=== PATIENT | female | born 2000 | race Caucasian/White ===

== ENCOUNTER 2021-09-18 20:23 | Emergency (ER) | payer OTHER, SELFPAY ==
[2021-09-18 20:36] VITALS: BP 138/83; PULSE 105; RESP 17; TEMP 36.2; O2SAT 100
[2021-09-18 20:52] LABS: Add Urine Microscopic? YES; Amorphous Sediment Urine Heavy; Appearance Urine Turbid (Clear); Bilirubin Urine Negative (Negative); Blood Urine 2+ (Negative); Color Urine Red (Yellow); Glucose Urine UA Negative (Negative); Ketones Urine Negative (Negative); Leukocyte Esterase Ur 1+ LEU/UL (Negative); Nitrate Urine Negative (Negative); Protein Urine 2+ mg/dL (Negative); RBC Urine >75 /hpf (0-2); Specific Grav Ur 1.018 (1.001-1.035); Urobilinogen Urine Negative mg/dL (<2.0)
--- NOTE | 2021-09-18 20:55 | ED.FEMALEGU ---
HPI - Female Genitourinary General Chief complaint: Urogenital-Female Stated complaint: think i have a uti Time Seen by Provider: 09/18/21 20:38 History of Present Illness HPI Narrative: 20-year-old female presents the emergency room with complaints of dysuria for 3 days. Patient denies abdominal pain, denies low back pain, denies fever, no concerns over STDs. Related Data Home Medications Medication Instructions Recorded Confirmed No Home Medications 09/18/21 09/18/21 Allergies Allergy/AdvReac Type Severity Reaction Status Date / Time No Known Allergies Allergy Verified 09/18/21 20:23 Review of Systems Review of Systems: CONSTITUTIONAL: Denies fever, chills, or sweats. EYES: Denies visual changes, redness, or discharge. ENT: Denies rhinorrhea, congestion, sore throat, or otalgia. CARDIOVASCULAR: Denies chest pain, palpitations, or edema. RESPIRATORY: Denies cough or dyspnea. GASTROINTESTINAL: Denies abdominal pain, nausea, vomiting, or diarrhea. GENITOURINARY: Reports dysuria and hematuria. SKIN: Denies rash or itching. MUSCULOSKELETAL: Denies back pain, joint pain, or myalgia. NEUROLOGIC: Denies headache, numbness, dizziness, or weakness. PSYCHIATRIC: Denies anxiety or depression. Exam Narrative: GENERAL: Well-appearing, well-nourished, and in no acute distress. HEAD: Normocephalic, atraumatic. EYES: PERRLA and EOMI. ENT: Nares clear, no rhinorrhea or epistaxis. Mucous membranes moist. NECK: Supple. No adenopathy or masses. No carotid bruits or JVD CHEST: Clear to auscultation. No respiratory distress. No wheezes rales or rhonchi HEART: Regular rate and rhythm. No murmur heard. Normal peripheral pulses. ABDOMEN: Soft, nontender, nondistended, normal active bowel sounds. No CVA tenderness EXTREMITIES: Normal range of motion. No edema. SKIN: Warm, dry, no rash. NEURO: No focal deficits. Alert and oriented x3. PSYCH: Normal mood and affect. Course Vital Signs Vital signs: Vital Signs Temperature 36.2 C L 09/18/21 20:36 Pulse Rate 105 H 09/18/21 20:36 Respiratory Rate 17 09/18/21 20:36 Blood Pressure 138/83 09/18/21 20:36 Pulse Oximetry 100 09/18/21 20:36 Temperature 36.2 C L 09/18/21 20:36 Pulse Rate 105 H 09/18/21 20:36 Respiratory Rate 17 09/18/21 20:36 Blood Pressure 138/83 09/18/21 20:36 Pulse Oximetry 100 09/18/21 20:36 MDM - Female Genitourinary Lab Data Labs: Lab Results 09/18/21 Range/Units 20:34 Urine Color Red H (Yellow) Urine Appearance Turbid H (Clear) Urine pH 6.0 (5.0-9.0) Ur Specific [place] 1.018 (1.001-1.035) Urine Protein 2+ H (Negative) mg/dL Urine Glucose (UA) Negative (Negative) mg/dL Urine Ketones Negative (Negative) mg/dL Ur Blood (Man) 2+ H (Negative) Urine Nitrate Negative (Negative) Urine Bilirubin Negative (Negative) Urine Urobilinogen Negative (<2.0) mg/dL Leukocyte Esterase Rfl 1+ H (Negative) [place]/UL Urine RBC >75 H (0-2) /hpf Urine WBC 10-15 H /hpf Amorphous Sediment Heavy H (None) UCG Bedside Result Negative Reference Range: Negative Urine Characteristics Cloudy Discharge Plan Discharge Clinical Impression: Dysuria Patient Disposition: Home, Self-Care Condition: Stable Instructions: Antibiotic Form Prescriptions: New nitrofurantoin monohyd/m-cryst [Macrobid] 100 mg capsule 100 mg PO Q12H 7 Days Qty: 14 RF: 0 phenazopyridine [Azo Urinary Pain Relief] 95 mg tablet 95 mg PO TID PRN (Reason: pain) Qty: 6 RF: 0 No Action No Home Medications RF: 0 Follow-up/Referrals: JO-ANN,EJNNIFER ROBIN [Primary Care Provider] - Time of Disposition: 20:57
== END 2021-09-18 21:34 | disposition home or self-care (01) ==
LOC: ANHED 21:04
PROVIDERS: Emergency Medicine; Emergency Provider Nurse Practitioner Family; PCP Nurse Practitioner Family
DX: R30.0 Dysuria (principal)
CPT/HCPCS: 81001; 81025; 87086; 87088; 99283

== ENCOUNTER 2022-04-20 04:26 | Emergency (ER) | payer OTHER, SELFPAY ==
[2022-04-20 04:27] VITALS: BP 115/70; PULSE 66; RESP 16; TEMP 36.3; O2SAT 98
--- NOTE | 2022-04-20 04:41 | ED.FEMALEGU ---
HPI - Female Genitourinary General Chief complaint: Urogenital-Female Stated complaint: UTI Time Seen by Provider: 04/20/22 04:27 Source: patient Limitations: no limitations History of Present Illness HPI Narrative: The patient is a 21 yo female presenting for evaluation of dysuria, hematuria, frequency. Pt has had worsening symptoms over the past 3 days. Pt without flank pain, n/v, fever or chills. No abdominal pain. Pt denies vaginal bleeding. She does not believe she is . Pt with history of UTI earlier this year; states this feels similar. Related Data Allergies Allergy/AdvReac Type Severity Reaction Status Date / Time No Known Allergies Allergy Verified 04/20/22 04:26 Review of Systems Review of Systems: CONSTITUTIONAL: Denies fever CARDIOVASCULAR: Denies chest pain RESPIRATORY: Denies cough or dyspnea. GASTROINTESTINAL: Denies abdominal pain : Reports dysuria, hematuria, urgency, frequency SKIN: Denies rash MUSCULOSKELETAL: Denies back pain NEUROLOGIC: Denies headache Exam Narrative: GENERAL: Awake, alert, conversant HEAD: Normocephalic, atraumatic. EYES: PERRLA and EOMI. ENT: Nares clear, no rhinorrhea or epistaxis. Mucous membranes moist. NECK: Supple. CHEST: No respiratory distress, breathing even and non labored HEART: Regular rate, sinus rhythm ABDOMEN:Non distended, non tender, no suprapubic tenderness, no flank tenderness bilaterally EXTREMITIES: Normal range of motion. No edema. SKIN: Warm, dry, no rash. NEURO:No focal deficits. Alert and oriented x3 Course Vital Signs Vital signs: Vital Signs Temperature 36.3 C L 04/20/22 04:27 Pulse Rate 66 04/20/22 04:27 Respiratory Rate 16 04/20/22 04:27 Blood Pressure 115/70 04/20/22 04:27 Pulse Oximetry 98 04/20/22 04:27 Oxygen Delivery Room Air 04/20/22 04:27 Temperature 36.3 C L 04/20/22 04:27 Pulse Rate 66 04/20/22 04:27 Respiratory Rate 16 04/20/22 04:27 Blood Pressure 115/70 04/20/22 04:27 Pulse Oximetry 98 04/20/22 04:27 Oxygen Delivery Room Air 04/20/22 04:27 MDM - Female Genitourinary MDM Narrative Medical decision making narrative: Patient presenting for evaluation of dysuria, hematuria, frequency. Patient without fever, chills. No flank pain. No history of nephrolithiasis. Patient without any pain at the time of assessment. Clinically, does not seem consistent with pyelonephritis. Patient without fever, chills, nausea, vomiting or flank pain. Does not seem consistent with nephrolithiasis given she is having no pain. Reviewed previous records, patient with history of urinary tract infection in September. Urine culture ultimately was negative except for mixed genital david. Patient had been prescribed Macrobid at that time. Tonight, urinalysis is notable for hematuria with small amount of leukoesterase, no significant amount of white blood cells. Given patient's symptoms, I do think we need to treat for cystitis. I will send for urine culture as well. No imaging for now her blood work as the patient is systemically well without other concerning symptoms. Plan for close outpatient follow-up, we also did discuss need for follow-up given the hematuria, to urinary tract infection/cystitis in the year. I do feel it is appropriate to send the patient home on Macrobid given it has been greater than 6 months since previous symptoms. Differential Diagnosis Differential diagnosis: Likely urinary tract infection, cervicitis, vaginitis and cystitis Medical Records Attestation: I reviewed the patient's medical records. Lab Data Attestation: I reviewed the patient's lab results. Labs: Lab Results 04/20/22 Range/Units 04:55 Urine Color Red H (Yellow) Urine Appearance Turbid H (Clear) Urine pH 6.0 (5.0-9.0) Ur Specific [place] 1.026 (1.001-1.035) Urine Protein Unable to determine (Negative) mg/dL Urine Glucose (UA) Unable to determine (Negative) mg/dL Urine Ketones Negative
[2022-04-20 05:08] LABS: Add Urine Microscopic? YES; Appearance Urine Turbid (Clear); Bilirubin Urine Negative (Negative); Blood Urine 3+ (Negative); Color Urine Red (Yellow); Glucose Urine UA Unable to determine mg/dL (Negative); Ketones Urine Negative (Negative); Leukocyte Esterase Ur Trace LEU/UL (Negative); Nitrate Urine Negative (Negative); Protein Urine Unable to determine mg/dL (Negative); Specific Grav Ur 1.026 (1.001-1.035); Urobilinogen Urine Negative mg/dL (<2.0)
[2022-04-20] MEDS: PHENAZOPYRIDINE HCL 100 MG TABLET PO (05:14)
[2022-04-20] MEDS: CEPHALEXIN 500 MG CAPSULE PO (05:14)
[2022-04-20 05:17] LABS: RBC Urine >75 /hpf (0-2); WBC Urine 16-20 /hpf
[2022-04-20 05:18] LABS: Bacteria Urine 1+ /hpf; Squamous Epithelial Cell Urine Unable to determine /hpf (Few)
== END 2022-04-20 05:23 | disposition home or self-care (01) ==
PROVIDERS: Emergency Provider Emergency Medicine
DX: N30.90 Cystitis, unspecified without hematuria (principal)
CPT/HCPCS: 81001; 81025; 87086; 99283; A9270

== ENCOUNTER 2022-11-10 22:30 | Emergency (ER) | payer SELFPAY ==
--- NOTE | ~2022-11-10 | XR_ITS ---
EXAM: XR finger 1st RT min 2V DATE: 11/10/2022 23:02 HISTORY: slammed thumb in car door . COMPARISON: None available. FINDINGS: Normal mineralization. Tiny nondisplaced fracture along the anteromedial aspect of the dis guero tuft. No lytic or blastic lesion. Joint spaces are maintained. No erosion or periosteal change. S oft tissues within normal limits. IMPRESSION: Tiny nondisplaced fracture of the anteromedial aspect of the distal tuft of the right fir st distal phalange. Reviewed, dictated and finalized at location K. IMPRESSION: Tiny nondisplaced fracture of the anteromedial aspect of the distal tuft of the right first distal phalange.
[2022-11-10 22:32] VITALS: BP 125/78; PULSE 109; RESP 20; TEMP 36.8; O2SAT 100
--- NOTE | 2022-11-11 01:43 | ED.UPPEXIN ---
HPI - Extremity Injury (Upper) General Chief Complaint: Extremity Injury, Upper Stated Complaint: slammed right thumb in car door Time Seen by Provider: 11/11/22 01:23 Source: patient Mode of arrival: ambulatory Limitations: no limitations History of Present Illness HPI narrative: Patient is a 30-year-old female who presents to the ED with report of right thumb pain. Patient reports she accidentally slammed her right thumb in the car door around 10 PM last night. She complains of pain and swelling diffusely throughout the right thumb. No numbness. No other injuries. She has not taken anything for pain. Related Data Allergies Allergy/AdvReac Type Severity Reaction Status Date / Time No Known Allergies Allergy Verified 04/20/22 04:26 Review of Systems Review of Systems: CONSTITUTIONAL: Denies fever, chills, or sweats. MUSCULOSKELETAL: See HPI. NEUROLOGIC: Denies tingling, numbness, or weakness. All systems reviewed & are unremarkable except as noted in HPI and below PMFSH Past Medical History Medical History No pertinent past medical history Surgical History Surgical History No pertinent past surgical history Social History Social History Smoking status: Never smoker Exam Narrative: GENERAL: Well appearing, well-nourished, non-toxic, in no acute distress. HEAD: Normocephalic, atraumatic. NECK: Supple. No adenopathy, no masses. RESPIRATORY: Airway patent, respirations nonlabored. CARDIOVASCULAR: Regular rate and rhythm without murmurs, rubs, or gallops. Radial pulses 2+ and equal bilaterally. MUSCULOSKELETAL: Moves all extremities. Full extension, abduction, opposition of right thumb. Mild limitation in flexion due to pain. Diffuse tenderness throughout right thumb with mild swelling and ecchymosis noted. Pinpoint abrasion just proximal to cuticle, no active bleeding. Cuticle of nail intact, small area of subungual hematoma noted to proximal right corner of nail. Sensation intact. SKIN: Warm, dry, normal color. No rashes. NEURO: A&O X3. Speech clear. Cranial nerves II-XII grossly intact. Steady gait. No ataxic movements. PSYCHIATRIC: Appropriate mood and affect. Normal interaction. Course Vital Signs Vital signs: Vital Signs Temperature 98.3 F 11/10/22 22:32 Pulse Rate 109 H 11/10/22 22:32 Respiratory Rate 20 11/10/22 22:32 Blood Pressure 125/78 11/10/22 22:32 Pulse Oximetry 100 11/10/22 22:32 Oxygen Delivery Room Air 11/10/22 22:32 Temperature 98.3 F 11/10/22 22:32 Pulse Rate 109 H 11/10/22 22:32 Respiratory Rate 20 11/10/22 22:32 Blood Pressure 125/78 11/10/22 22:32 Pulse Oximetry 100 11/10/22 22:32 Oxygen Delivery Room Air 11/10/22 22:32 MDM - Extremity Injury (Upper) MDM Narrative Medical decision making narrative: Patient's injury is consistent with musculoskeletal etiology. No signs of neurologic or vascular compromise on physical examination. Compartments are soft without signs of compartment syndrome. XR showing nondisplaced distal tuft fracture. Pain is consistent with exam and injury. No other injuries. Patient is felt to be stable for discharge home and further outpatient management and treatment. Patient placed in metal finger splint. Will provide hand surgery information for follow-up. Patient given return precautions. She agrees with plan. Discharged in stable condition. Medical Records Attestation: I reviewed the patient's medical records. Lab Data Labs: UCG Bedside Result Negative Reference Range: Negative Imaging Data Attestation: I personally reviewed and interpreted this imaging study as follows: Radiologist's impression: ITS Impressions Finger X-Ray
[2022-11-11] MEDS: IBUPROFEN 600 MG TABLET PO (02:01)
--- NOTE | 2022-11-21 06:08 | PC.NURSE ---
LATE ENTRY This note is being entered to document information to the patient's record. The following information was omitted on [11/16/2022], by [Erika Ferrer]. Ordered metal finger splint and applied by Erika Adan (DUDLEY)
--- NOTE | 2022-12-07 16:17 | PC.NURSE ---
LATE ENTRY This note is being entered to document information to the patient's record. The following information was omitted on [11/11/22], by []. DUDLEY James applied metal finger splint on 11/11/22 at 0130am
== END 2022-11-11 02:06 | disposition home or self-care (01) ==
PROVIDERS: Emergency Provider Physician Assistant
DX: S62.524A Nondisplaced fracture of distal phalanx of right thumb, initial encounter for closed fracture (principal); W23.0XXA Caught, crushed, jammed, or pinched between moving objects, initial encounter
CPT/HCPCS: 29130; 73140; 81025; 99283; 99284; A9270